=== PATIENT | male | born 2000 | race Hispanic/Latino ===

== ENCOUNTER 2022-04-17 09:37 | Emergency (ER) | payer OTHER ==
[~2022-04-17] VITALS: Ht 170.2 cm; Wt 86.2 kg
[2022-04-17 09:41] VITALS: BP 144/80
[2022-04-17] MEDS ORDERED: IBUPROFEN 600 MG TABLET PO ONE (10:00)
[2022-04-17] MEDS ORDERED: MORPHINE 4 MG SYG IM ONE (10:30)
[2022-04-17] MEDS ORDERED: IBUP-2070 PO (10:51)
== END 2022-04-17 11:09 | disposition home or self-care (01) ==
LOC: EDH 09:37
DX: S63.266A Dislocation of metacarpophalangeal joint of right little finger, initial encounter (principal); Z79.1 Long term (current) use of non-steroidal anti-inflammatories (NSAID); W22.01XA Walked into wall, initial encounter; Y93.89 Activity, other specified; Y92.89 Other specified places as the place of occurrence of the external cause; Y99.8 Other external cause status
CPT/HCPCS: 99284; 26700; 73130; 96372; 73120; J2270